=== PATIENT | male | born 1955 | race Caucasian/White ===

== ENCOUNTER → 2017-04-18 | Outpatient (CLI) | payer BC, SELFPAY ==
--- NOTE | 2017-04-19 08:59 | MRI ---
MRI right knee without contrast INDICATION: Knee pain medial no specific injury history provided TECHNIQUE: Noncontrast MR imaging right knee standard protocol FINDINGS: Large joint effusion. Moderate prepatellar and superficial infrapatellar bursal edema. Intact cruciate ligaments. Diffuse relatively horizontal tear along the undersurface and free edge body and posterior horn medial meniscus with mild fraying of the anterior horns well. There is a small bucket-handle fragment in the intercondylar region as well on the coronal images. Mild degenerative change free edge body and posterior horn lateral meniscus with mild fraying. No advanced arthrosis of the tibiofemoral compartments. There is grade 3-4 chondral fissuring at the midline trochlea. Normal patellofemoral alignment. Minimal tendinosis of the proximal patellar tendon without rupture or retraction. Minimal tendinosis and interstitial fissuring distal quadricep tendon. IMPRESSION: Diffuse relatively horizontal tear along the undersurface and free edge body and posterior horn medial meniscus with small displaced intercondylar bucket-handle fragment Mild degenerative free edge fraying body posterior horn junction lateral meniscus Large joint effusion Grade 3-4 chondral fissuring midline trochlea Electronically signed by: Martinez Cobb MD 04/19/2017 8:57 AM CDT
== END | disposition home or self-care (01) ==
LOC: MRI 08:59
PROVIDERS: ATTEND Family Medicine
DX: M17.11 Unilateral primary osteoarthritis, right knee (principal)

== ENCOUNTER 2017-04-29 05:58 | Day surgery (SDC) | payer BC ==
[2017-04-29] MEDS ORDERED: LACTATED RINGERS 1,000 ML ONE (06:05)
--- NOTE | 2017-04-29 07:57 | OP ---
DATE OF PROCEDURE: 04/29/17 PREOPERATIVE DIAGNOSIS: 1. Colon cancer screen. POSTOPERATIVE DIAGNOSIS: 1. Normal colonoscopy to the cecum. PROCEDURE: 1. Colonoscopy. SURGEON: Bandar Sawyer MD. ANESTHESIA: MAC by Akbar Elizondo CRNA. ESTIMATED BLOOD LOSS: None. COMPLICATIONS: None apparent. TECHNIQUE: After informed consent was obtained from the patient, the patient was taken to the Endoscopy Suite and put in the left lateral decubitus position. After adequate IV sedation was obtained, a digital rectal exam was performed. The patient was noted to have a large external hemorrhoidal tag, but no active hemorrhoids. Sphincter tone was decreased. The prostate is smooth, 1+ and anodular. The colonoscope was then passed with good visualization all the way through the colon. The colon was noted to be very long and redundant. It did take some time navigating all the way to the cecum. The bowel prep was good. There was a large amount of liquid stool that was easily suctioned out of the colon. We were able to reach the cecum and then with slow withdrawal of the scope over the next 8 minutes, a good look at the entire colonic mucosa was obtained. There were no abnormalities identified. The scope was removed. The patient tolerated the procedure well. The patient was transported to the outpatient area in good condition. He will followup with me on a p.r.n. basis. [facility][id number]
[2017-04-29 08:59] VITALS: BP 115/69; TEMP 96.6; O2SAT 99
[2017-04-29] MEDS ORDERED: PROPOFOL 200 MG/20 ML VIAL IV ONE (09:00)
== END 2017-04-29 08:45 | disposition home or self-care (01) ==
LOC: AMB 05:58
PROVIDERS: ATTEND Family Medicine
DX: Z12.11 Encounter for screening for malignant neoplasm of colon (principal); G47.33 Obstructive sleep apnea (adult) (pediatric); R73.9 Hyperglycemia, unspecified; M17.10 Unilateral primary osteoarthritis, unspecified knee; Z87.891 Personal history of nicotine dependence; Z88.0 Allergy status to penicillin
CPT/HCPCS: 00810; 45378; 87070; J3490; J7120

== ENCOUNTER 2017-05-07 08:00 | Day surgery (SDC) | payer BC ==
--- NOTE | 2017-05-03 09:26 | HP ---
CHIEF COMPLAINT: Right knee pain. HISTORY OF PRESENT ILLNESS: Mr. Alexander has a history of a postoperative in his knee that he had in felt back in July. He has pretty much had pain ever since then. At that time, he had the acute onset of pain and swelling. He denies any radiation of pain and says the pain seems to be most prominent along the medial aspect of the knee. The pain has waxed and waned in intensity. He has had some locking as well. He has had an MRI and that MRI is consistent with a meniscus tear. Because of the ongoing symptoms, the mechanical symptoms and the MRI, he has requested operative intervention. After discussing the risks, benefits and alternatives to that, the patient has given informed consent. PAST SURGICAL HISTORY: None. MEDICATIONS: None. ALLERGIES: PENICILLIN. CODE STATUS: Full code. IMMUNIZATIONS: Up to date. SOCIAL HISTORY: The patient does not drink, smoke or use any illicit drugs. FAMILY HISTORY: None pertinent to today's complaint. REVIEW OF SYSTEMS: Negative except as indicated in the History of Present Illness. PHYSICAL EXAMINATION: VITAL SIGNS: Blood pressure 109/70. Pulse 64. Height 60. Weight 205. MENTAL STATUS: The patient is awake, alert, and is able to give a good history and participate in the physical. The patient is oriented to person, place and time. SKIN: Normal tone and turgor. MUSCULOSKELETAL: He is very tender along the medial aspect of the knee and has positive Wagner's. He does have full extension with flexion to about 125. Sensation is intact. Strength is 5/5. He has no varus/valgus or anterior/ posterior laxity and he has no deformity. The entire extremity is warm and well perfused. ASSESSMENT: 1. Meniscus tear. PLAN: The plan at this point is for partial meniscectomy. We have discussed the risks, benefits, and alternatives to that and the patient has given informed consent. #[id number] [facility]
[~2017-05-07 08:00] MED LIST: LACTATED RINGERS 1,000 ML ONE; SODIUM CHL 0.9% 100ML MINI-BAG 100 ML IVPB ONE; VANCOMYCIN HCL INJ 1,000 MG VIAL IVPB ONE; ceFAZolin SODIUM 1 GM VIAL ONE
[2017-05-07] MEDS ORDERED: MIDAZOLAM INJ 5 MG/5 ML VIAL ONE (10:10)
[2017-05-07] MEDS ORDERED: BUPIVACAINE 0.5% W/EPI 30 ML VIAL INJ ONE (10:11)
[2017-05-07] MEDS ORDERED: fentaNYL CITRATE INJ 50 MCG/ML AMP ONE (10:11)
[2017-05-07] MEDS ORDERED: KETOROLAC TROMETHAMINE INJ 30 MG/ML VIAL IV ONE (12:00)
[2017-05-07] MEDS ORDERED: LIDOCAINE 1% 10 ML VIAL INJ ONE (12:00)
[2017-05-07] MEDS ORDERED: DEXAMETHASONE INJ 10 MG/ML VIAL IV ONE (12:00)
[2017-05-07] MEDS ORDERED: raNITIdine HCL INJ 25 MG/ML VIAL IV ONE (12:00)
[2017-05-07] MEDS ORDERED: PROPOFOL 200 MG/20 ML VIAL IV ONE (12:00)
[2017-05-07] MEDS ORDERED: ePHEDrine SULF 50 MG/ML IV ONE (12:00)
[2017-05-07 14:36] VITALS: TEMP 97.1
[2017-05-07 14:40] VITALS: BP 119/77; O2SAT 96
--- NOTE | 2017-05-08 10:01 | OP ---
DATE OF PROCEDURE: 05/07/17 PREOPERATIVE DIAGNOSIS: 1. Right knee medial meniscus tear. POSTOPERATIVE DIAGNOSIS: 1. Tear of the medial meniscus extending from the anterior horn to the midbody. 2. Early patellofemoral arthritis. PROCEDURE: 1. Partial meniscectomy. SURGEON: Morgan Perez MD. LOADING INSPECTOR: Baldev Salinas CST, -C. ANESTHESIA: General. COMPLICATIONS: None. FINDINGS: 1. Large flap tear involving the medial meniscus and extending from the anterior horn to the midbody. 2. Normal anterior cruciate ligament, normal posterior cruciate ligament. 3. Normal lateral compartment. 4. Normal lateral gutter. 5. Normal suprapatellar pouch. 6. Osteoarthritis of the patellofemoral joint. 7. Normal medial gutter. INDICATION: Mr. Alexander has a history of mechanical symptoms in association with an injury that he had sustained several months ago. Because of his ongoing symptoms, he requested operative intervention. After discussing the risks, benefits and alternatives to that, the patient has given informed consent for that. PROCEDURE: The patient was brought to the Operating Room and placed in supine position. General anesthesia was induced and the patient's leg was sterilely prepped and draped. Following prepping and draping, standard anteromedial and anterolateral portals were established. Diagnostic arthroscopy was carried out with the above findings. Following diagnostic arthroscopy, the arthroscopic biter and a 3.5 mm full radius shaver were used to debride the meniscus to a stable base. The meniscus was thoroughly probed to ensure complete removal of the flap and all debris. The knee was thoroughly irrigated and following irrigation, it was drained. The wounds were closed with Nylon suture. Sterile dressings were placed. The patient was awoken from anesthesia and taken to Recovery. POSTOPERATIVE INSTRUCTIONS: The patient will be partial weightbearing until followup with us in 2 days. #[id number] [facility]
== END 2017-05-07 12:45 | disposition home or self-care (01) ==
LOC: AMB 08:00
PROVIDERS: ATTEND Orthopaedic Surgery
DX: M23.211 Derangement of anterior horn of medial meniscus due to old tear or injury, right knee (principal); M13.861 Other specified arthritis, right knee; Z88.0 Allergy status to penicillin; Z87.891 Personal history of nicotine dependence
CPT/HCPCS: 01400; 29881; J0690; J1100; J1885; J2250; J2780; J3010; J3490; J7050; J7120